=== PATIENT | female | born 1960 | race Asian ===

== ENCOUNTER 2017-02-02 16:03 | Inpatient (IN) | payer MEDICAID ==
[~2017-02-02] VITALS: Ht 162.6 cm; Wt 64.9 kg
[~2017-02-02 16:03] MED LIST: AMLO10TA80 PO; ATOR20TA65 PO; INSU3INS6 SUBCUT; METO25TA6 PO; OMEP40CA34 PO
[2017-02-02 18:39] LABS: BASOPHILS % 0.5 % (0.0-2.0); EOSINOPHILS % 3.6 % (0.0-5.0); HEMATOCRIT. 32.7 % (36.0-48.0); HEMOGLOBIN. 10.9 g/dL (12.0-16.0); LYMPHOCYTES % 10.3 % (20.0-50.0); MEAN CORPUSCULAR HEMOGLOBIN 29.6 pg (28.0-32.0); MEAN CORPUSCULAR VOLUME 88.6 fL (81.0-99.0); MEAN PLATELET VOLUME 7.4 fl (7.4-10.4); MONOCYTES % 10.5 % (2.0-8.0); NEUTROPHILS % 75.1 % (40.0-76.0); PLATELET 184 x1000/uL (130-400); RED CELL DISTRIBUTION WIDTH 14.3 % (11.6-14.6)
[2017-02-02 18:47] LABS: PROTHROMBIN TIME 9.9 sec (9.4-11.6)
[2017-02-02 18:57] LABS: CARBON DIOXIDE 26 mEq/L (21-32); CHLORIDE 98 mEq/L (98-107)
[2017-02-02 18:58] LABS: TROPONIN I < 0.02 ng/mL (0.00-0.04)
[2017-02-02 21:30] VITALS: BP 135/76
[2017-02-02 21:35] VITALS: BP 135/76
[2017-02-03] VITALS: BP 128/78
[2017-02-03] MEDS ORDERED: ONDANSETRON HCL 4MG/2ML VIAL IV PRN
[2017-02-03] MEDS ORDERED: ACETAMINOPHEN 325MG TABLET PO PRN
[2017-02-03] MEDS ORDERED: CLONIDINE 0.1MG TABLET PO PRN
[2017-02-03] MEDS ORDERED: HYDROCODONE/ACETAMINOPHEN 5/325MG TABLET PO PRN
[2017-02-03] MEDS: PANTOPRAZOLE 40MG DR TABLET PO SCH ×2 (00:41→06:30)
[2017-02-03] MEDS ORDERED: CEFTRIAXONE 1 G PREMIX 50 ML IV SCH ×2 (02:00)
[2017-02-03 04:00] VITALS: BP 123/70
[2017-02-03] MEDS ORDERED: DEXTROSE 50% WATER 50ML SYRINGE IV PRN (05:15)
[2017-02-03] MEDS: BLOOD SUGAR DIAGNOSTIC STRIP TEST SCH ×2 (06:29→12:16)
[2017-02-03 06:55] LABS: BASOPHILS % 0.4 % (0.0-2.0); EOSINOPHILS % 8.9 % (0.0-5.0); HEMATOCRIT. 33.5 % (36.0-48.0); HEMOGLOBIN. 11.2 g/dL (12.0-16.0); LYMPHOCYTES % 12.5 % (20.0-50.0); MEAN CORPUSCULAR HEMOGLOBIN 29.9 pg (28.0-32.0); MEAN CORPUSCULAR VOLUME 89.2 fL (81.0-99.0); MEAN PLATELET VOLUME 7.6 fl (7.4-10.4); MONOCYTES % 10.3 % (2.0-8.0); NEUTROPHILS % 67.9 % (40.0-76.0); PLATELET 179 x1000/uL (130-400); RED BLOOD CELL COUNT 3.76 mill/uL (4.2-5.4); RED CELL DISTRIBUTION WIDTH 13.9 % (11.6-14.6)
[2017-02-03 07:32] LABS: CARBON DIOXIDE 27 mEq/L (21-32); CHLORIDE 99 mEq/L (98-107); CREATINE KINASE MB FRACTION 0.5 ng/mL (0.5-3.6); TROPONIN I < 0.02 ng/mL (0.00-0.04)
[2017-02-03 07:37] LABS: CREATINE KINASE 52 IU/L (26-192); HDL CHOLESTEROL 35 mg/dL (40-59); LDL CHOLESTEROL 49 mg/dL (5-100); T4 FREE 1.23 ng/dL (0.76-1.46)
[2017-02-03] MEDS: INSULIN LISPRO 100 UNITS/ML SUBCUT SCH ×2 (07:50→12:24)
[2017-02-03 08:00] VITALS: BP 128/70
[2017-02-03] MEDS ORDERED: ASPIRIN 81MG EC TABLET PO SCH (09:00)
[2017-02-03] MEDS ORDERED: AMLODIPINE 10MG TABLET PO SCH (09:00)
[2017-02-03] MEDS ORDERED: HEPARIN 5000 UNITS/ML VIAL SUBCUT SCH (09:00)
[2017-02-03] MEDS ORDERED: METOPROLOL TARTRATE 25MG TABLET PO SCH (09:00)
[2017-02-03 14:59] VITALS: BP 117/70
[2017-02-03 18:07] LABS: CREATINE KINASE MB FRACTION < 0.5 ng/mL (0.5-3.6); TROPONIN I < 0.02 ng/mL (0.00-0.04)
[2017-02-03 18:12] LABS: CREATINE KINASE 70 IU/L (26-192)
== END 2017-02-03 17:36 | disposition home or self-care (01) | DRG 203 ==
LOC: ER 16:13 → 6WST 20:00 → EDBEDREQ 20:20 → ENRESERV 21:07 → CANRESERV 21:07 → 6WST 23:14
PROVIDERS: ADMIT Internal Medicine; ATTEND Internal Medicine
DX: M94.0 Chondrocostal junction syndrome [Tietze] (principal); E43 Unspecified severe protein-calorie malnutrition; I12.0 Hypertensive chronic kidney disease with stage 5 chronic kidney disease or end stage renal disease; N18.6 End stage renal disease; E11.22 Type 2 diabetes mellitus with diabetic chronic kidney disease; D64.9 Anemia, unspecified; K21.9 Gastro-esophageal reflux disease without esophagitis; Z79.4 Long term (current) use of insulin; Z79.899 Other long term (current) drug therapy
CPT/HCPCS: 36415; 71010; 80053; 80061; 82550; 82553; 82962; 83880; 84439; 84443; 84484; 85025; 85610; 87040; 93005; 93306; 99285; J0696; J1644; J1815; J7050

== ENCOUNTER 2023-11-10 08:55 | Emergency (ER) | payer MEDICAID, OTHER ==
[~2023-11-10] VITALS: Ht 157.5 cm; Wt 57.2 kg
[~2023-11-10 08:55] MED LIST changes: +FOLI1TAB87 MT; +OMEP40CA20 PO; -OMEP40CA34 PO
[2023-11-10 09:08] VITALS: O2SAT 100
[2023-11-10] MEDS ORDERED: HYDRALAZINE HCL 50MG TABLET PO ONE (09:15)
[2023-11-10 09:32] LABS: BASOPHILS % 0.9 % (0.0-2.0); EOSINOPHILS % 11.9 % (0.0-5.0); HEMOGLOBIN. 11.6 g/dL (12.0-16.0); LYMPHOCYTES % 16.9 % (20.0-50.0); MEAN CORPUSCULAR HEMOGLOBIN 30.7 pg (28.0-32.0); MEAN CORPUSCULAR HGB CONC 32.2 g/dL (31.0-37.0); MEAN CORPUSCULAR VOLUME 95.1 fL (81.0-99.0); MEAN PLATELET VOLUME 7.1 fl (7.4-10.4); MONOCYTES % 10.3 % (2.0-8.0); PLATELET 323 x1000/uL (130-400); RED BLOOD CELL COUNT 3.78 mill/uL (4.2-5.4); RED CELL DISTRIBUTION WIDTH 15.6 % (11.6-14.6); WHITE BLOOD COUNT 8.8 x1000/uL (4.5-11.0)
[2023-11-10 09:50] LABS: POTASSIUM 4.6 mEq/L (3.5-5.1)
[2023-11-10 09:51] LABS: CALCIUM 9.3 mg/dL (8.7-10.4)
[2023-11-10] MEDS: HYDRALAZINE HCL 25MG TABLET PO NR (09:57)
[2023-11-10] MEDS: METOPROLOL SUCCINATE 50MG ER TABLET PO ONE (09:58)
[2023-11-10 10:35] LABS: CREATININE 9.9 mg/dL (0.6-1.0)
[2023-11-10 11:58] VITALS: BP 164/74; PULSE 76; RESP 14; TEMP 98.2
== END 2023-11-10 12:17 | disposition home or self-care (01) ==
LOC: ER 08:55
DX: N18.6 End stage renal disease (principal); I16.0 Hypertensive urgency; E11.22 Type 2 diabetes mellitus with diabetic chronic kidney disease; I12.9 Hypertensive chronic kidney disease with stage 1 through stage 4 chronic kidney disease, or unspecified chronic kidney disease; E11.65 Type 2 diabetes mellitus with hyperglycemia; Z98.890 Other specified postprocedural states; Z99.2 Dependence on renal dialysis
CPT/HCPCS: 36415; 80048; 85025; 99285